=== PATIENT | male | born 1960 | race Caucasian/White ===

== ENCOUNTER 2018-04-17 15:44 | Emergency (ER) | payer MEDICARE, OTHER ==
[~2018-04-17] VITALS: Ht 193 cm; Wt 117.9 kg
[~2018-04-17 15:44] MED LIST: CITA10TA59; GABA300C OR; HYDR-4683 PO; METO25TA62 PO
[2018-04-17 16:27] VITALS: BP 166/78
[2018-04-17] MEDS ORDERED: ALPRAZolam 0.5 MG TAB PO ONE (16:30)
== END 2018-04-17 17:06 | disposition home or self-care (01) ==
LOC: ER 15:44 → EDBD 15:44 → ER 17:06
DX: F41.9 Anxiety disorder, unspecified (principal); E78.5 Hyperlipidemia, unspecified; I10 Essential (primary) hypertension; I25.10 Atherosclerotic heart disease of native coronary artery without angina pectoris; F17.210 Nicotine dependence, cigarettes, uncomplicated; R51 Headache
CPT/HCPCS: 93005

== ENCOUNTER 2019-01-26 13:09 | Emergency (ER) | payer OTHER ==
[~2019-01-26] VITALS: Ht 193 cm; Wt 122.5 kg
[~2019-01-26 13:09] MED LIST changes: -HYDR-4683 PO; +HYDR-4833 PO
[2019-01-26] MEDS ORDERED: SODIUM CHLORIDE 0.9% 1,000 ML IVB ONE (13:29)
[2019-01-26] MEDS ORDERED: KETOROLAC TROMETH 15 mg/ml 1ML VL IV ONE (13:30)
[2019-01-26 14:05] LABS: Basophils # (auto) 0.1 uL; Basophils % (auto) 0.7 % (0.0-2.0); Eosinophils # (auto) 0.1 uL; Eosinophils % (auto) 0.6 % (0.0-7.0); Hematocrit 46.8 % (41.0-53.0); Hemoglobin 16.3 g/dL (13.5-17.5); Lymphocytes # (auto) 1.9 uL; Lymphocytes % (auto) 20.2 % (10.0-50.0); Mean Corpuscular Hemoglobin 30.9 pg (28.0-32.0); Mean Corpuscular Hgb Conc. 34.8 g/dL (32.0-36.0); Mean Corpuscular Volume 88.7 fL (80.0-100.0); Monocytes # (auto) 0.6 uL; Monocytes % (auto) 6.1 % (0.0-12.0); Neutrophils # (auto) 6.7 uL; Neutrophils % (auto) 72.4 % (37.0-80.0); Nucleated Red Blood Cells % 0.1 %; Platelet Count (auto) 234 10^3/uL (140-450); Red Blood Cells 5.27 10^6/uL (4.5-5.90); Red Cell Distribution Width 13.7 % (11.8-14.3); White Blood Cell 9.2 10^3/uL (4.4-10.8)
[2019-01-26 14:51] LABS: Albumin 3.8 g/dL (3.4-5.0); Calcium 9.1 mg/dL (8.5-10.1); Potassium 3.7 mmol/L (3.5-5.1)
[2019-01-26 14:56] LABS: BUN/Creatinine Ratio 10.7; Bilirubin, Total 0.5 mg/dL (0.2-1.0); Total Protein 7.3 g/dL (6.4-8.2)
[2019-01-26] MEDS ORDERED: LORazepam 2MG/ML-1ML VIAL IV ONE (15:15)
[2019-01-26 16:23] LABS: Urine Blood 1+ /uL (Negative); Urine Mucus MODERATE (None Seen); Urine Specific Gravity 1.034 (1.001-1.035); Urine WBC 24 /hpf (0 - 3)
[2019-01-26 16:25] LABS: Urine Bacteria RARE /hpf (None Seen)
[2019-01-26 16:30] VITALS: BP 137/83
== END 2019-01-26 17:25 | disposition home or self-care (01) ==
LOC: EDBD 13:09 → ER 13:18
DX: N39.0 Urinary tract infection, site not specified (principal); I25.10 Atherosclerotic heart disease of native coronary artery without angina pectoris; E78.5 Hyperlipidemia, unspecified; I10 Essential (primary) hypertension; F17.210 Nicotine dependence, cigarettes, uncomplicated; Z79.899 Other long term (current) drug therapy
CPT/HCPCS: 36415; 74176; 80053; 81001; 83690; 85025; 93005; 94761; 96374; 96375; 99284; J1885; J2060; J7030

== ENCOUNTER 2020-03-28 09:43 | Inpatient (IN) | payer OTHER, MEDICAID ==
[~2020-03-28] VITALS: Ht 193 cm; Wt 120.0 kg
[~2020-03-28 09:43] MED LIST changes: -METO25TA62 PO; +METO25TA93 PO
[2020-03-28] MEDS ORDERED: ASPirin 81 mg TAB PO ONE (10:15)
[2020-03-28] MEDS ORDERED: ONDANSETRON HCL 4 MG/2 ML VIAL IV ONE (10:15)
[2020-03-28] MEDS ORDERED: NITROGLYCERIN 0.4 MG SL TAB SL ONE (10:15)
[2020-03-28] MEDS: MORPHINE SULFATE 4 MG/ML SYR/VIAL IV ONE ×2 (10:27→11:34)
[2020-03-28] MEDS ORDERED: clonazePAM 0.5 MG TAB PO ONE (10:30)
[2020-03-28 10:40] LABS: Basophils # (auto) 0 10 ^3/uL (0-0.2); Basophils % (auto) 0.5 % (0.0-2.0); Eosinophils # (auto) 0.1 10 ^3/uL (0-0.8); Eosinophils % (auto) 0.8 % (0.0-7.0); Hematocrit 47.7 % (41.0-53.0); Hemoglobin 16.2 g/dL (13.5-17.5); Lymphocytes # (auto) 1.3 10 ^3/uL (0.4-5.4); Mean Corpuscular Hemoglobin 30.5 pg (28.0-32.0); Mean Corpuscular Volume 89.7 fL (80.0-100.0); Monocytes # (auto) 0.7 10 ^3/uL (0-1.3); Monocytes % (auto) 7.1 % (0.0-12.0); Neutrophils # (auto) 7.4 10 ^3/uL (1.6-8.6); Neutrophils % (auto) 77.6 % (37.0-80.0); Platelet Count (auto) 222 10^3/uL (140-450); Red Blood Cells 5.31 10^6/uL (4.5-5.90); Red Cell Distribution Width 13.9 % (11.8-14.3); White Blood Cell 9.6 10^3/uL (4.4-10.8)
[2020-03-28 11:00] LABS: Calcium 8.8 mg/dL (8.5-10.1); Chloride 106 mmol/L (98-107); Potassium 5.5 mmol/L (3.5-5.1); Sodium 135 mmol/L (136-145)
[2020-03-28 11:08] LABS: Alanine Aminotransferase 26 U/L (16-61); Albumin 3.8 g/dL (3.4-5.0); Alkaline Phosphatase 60 U/L (45-117); Anion Gap 2 (5-15); Aspartate Aminotransferase 42 U/L (15-37); BUN/Creatinine Ratio 13.4; Bilirubin, Total 0.7 mg/dL (0.2-1.0); Blood Urea Nitrogen 11 mg/dL (7-18); Carbon Dioxide 27 mmol/L (21-32); GFR African American 123 mL/min; GFR Non-African American 102 mL/min; Glucose 96 mg/dL (74-106); Magnesium 2.4 mg/dL (1.6-2.6); Total Protein 7.6 g/dL (6.4-8.2)
[2020-03-28] MEDS ORDERED: ALBUTEROL SULF 2.5 MG/0.5ML(0.5%) NEB SOLN NEB ONE (12:00)
[2020-03-28] MEDS ORDERED: InsuLIN REG 1unit/0.01ml Soln (100units/ml) IV ONE (12:00)
[2020-03-28] MEDS ORDERED: SODIUM BICARBONATE 8.4% INJ 50ML SYRINGE IV ONE (12:00)
[2020-03-28] MEDS ORDERED: SODIUM ZIRCONIUM CYCL 10 GM PAK PO ONE (12:00)
[2020-03-28] MEDS ORDERED: DEXTROSE (50%) 50ML SYRG IV ONE (12:00)
[2020-03-28] MEDS ORDERED: CALCIUM GLUC 4.65meq/50ml D5AE 50 ML IV ONE (12:00)
[2020-03-28] MEDS ORDERED: MORPHINE SULF INJ 2 MG/ML SYRINGE 1ML IV PRN ×2 (12:45→14:00)
[2020-03-28] MEDS ORDERED: NITROGLYCERIN 0.4 MG SL TAB SL PRN (12:45)
[2020-03-28] MEDS ORDERED: CLON1TAB10 PO (13:44)
[2020-03-28] MEDS ORDERED: ONDA-144 PO (13:44)
[2020-03-28] MEDS ORDERED: ERGO1CAP12 PO (13:44)
[2020-03-28] MEDS ORDERED: METH10T PO (13:44)
[2020-03-28] MEDS ORDERED: MET25T PO (13:44)
[2020-03-28] MEDS ORDERED: SILV-21 EX (13:45)
[2020-03-28] MEDS: SODIUM CHLOR 0.9% PF (SALINE LOCK) 10ML VIAL/SYR IV SCH ×2 (14:00→21:19)
[2020-03-28] MEDS ORDERED: PROMETHAZINE HCL 25 MG/ML 1ML IV PRN (14:00)
[2020-03-28] MEDS ORDERED: traMADol HCL 50 MG TAB PO PRN (14:00)
[2020-03-28] MEDS ORDERED: TEMAZEPAM 15 MG CAP PO PRN (14:00)
[2020-03-28] MEDS ORDERED: DOCU-94 PO (21:01)
[2020-03-28] MEDS: FAMOTIDINE 20 MG TAB PO SCH (21:17)
[2020-03-28] MEDS: ACETAMINOPHEN 500 MG TAB PO PRN (21:17)
[2020-03-28 23:34] VITALS: BP 138/79
[2020-03-29] VITALS (7 sets, daily range): BP systolic 119–142; BP diastolic 75–79
[2020-03-29] MEDS: SODIUM CHLOR 0.9% PF (SALINE LOCK) 10ML VIAL/SYR IV SCH ×3 (06:00→22:23)
--- NOTE | 2020-03-29 07:30 | NUR ---
Opening Shift Note Assumed care of patient, awake and alert. No S/S of distress/SOB or pain. Instructed on POC and to call for assist PRN, will continue to monitor for changes Q1hr and PRN. Fall precautions in place per safety protocol.
[2020-03-29 08:08] LABS: Chloride 105 mmol/L (98-107); Potassium 3.7 mmol/L (3.5-5.1); Sodium 139 mmol/L (136-145)
[2020-03-29 08:20] LABS: Alanine Aminotransferase 21 U/L (16-61); Albumin 3.6 g/dL (3.4-5.0); Alkaline Phosphatase 59 U/L (45-117); Anion Gap 6 (5-15); Aspartate Aminotransferase 13 U/L (15-37); Bilirubin, Total 0.7 mg/dL (0.2-1.0); Blood Urea Nitrogen 12 mg/dL (7-18); Calcium 8.6 mg/dL (8.5-10.1); Carbon Dioxide 28 mmol/L (21-32); Cholesterol 140 mg/dL (< 200); GFR African American 117 mL/min; GFR Non-African American 96 mL/min; Glucose 80 mg/dL (74-106); HDL Cholesterol 40 mg/dL (40-59); LDL Cholesterol 88 mg/dL (< 100); Triglycerides 136 mg/dL (< 150)
[2020-03-29] MEDS ORDERED: clonazePAM 0.5 MG TAB PO ONE (09:00)
--- NOTE | 2020-03-29 09:00 | NUR ---
Spoke to MD Gross regarding patient requesting daily clonazepam 1mg. Per MD Gross, order 1mg Clonazepam PO daily. Per MD Gross, ok to change this daily med and methadone for 0800 everyday. Orders read back and verified. Will cont to monitor patient.
[2020-03-29] MEDS ORDERED: METHADONE HCL 10 MG TAB PO ONE (09:15)
[2020-03-29] MEDS: ASPirin 81 mg TAB PO SCH (09:22)
[2020-03-29] MEDS: FAMOTIDINE 20 MG TAB PO SCH ×2 (09:22→22:23)
[2020-03-29] MEDS: ENOXAPARIN SOD 40 MG/0.4 ML SYRINGE SC SCH (09:23)
[2020-03-29] MEDS: ENALAPRIL MALEATE 2.5 MG TAB PO SCH (09:23)
[2020-03-29 09:24] LABS: Alcohol, Urine < 3.0 mg/dL (0-10); Amphetamine Screen, Urine NEGATIVE (NEGATIVE); Barbiturate Scree,Urine NEGATIVE (NEGATIVE); Benzodiazephine Screen, Urine NEGATIVE (NEGATIVE); Cannabinoid Screen, Urine NEGATIVE (NEGATIVE); Cocaine Screen, Urine NEGATIVE (NEGATIVE); Opiate Scree,Urine NEGATIVE (NEGATIVE); Phencyclidine Screen, Urine NEGATIVE (NEGATIVE)
[2020-03-29] MEDS: NITROGLYCERIN 0.2MG/HR TOPICAL PATCH TD SCH (09:24)
[2020-03-29] MEDS ORDERED: METHADONE HCL 10 MG TAB PO SCH (10:00)
[2020-03-29] MEDS ORDERED: ASPirin 81 mg TAB PO SCH (10:00)
[2020-03-29] MEDS: ACETAMINOPHEN 500 MG TAB PO PRN ×2 (16:51→22:44)
--- NOTE | 2020-03-29 17:18 | NUR ---
Hospitalist MD Gross at bedside, aware of patient status. New orders input by MD. Per MD change CPAP to BiPAP and have it titrated for patient comfort. Orders read back and verified. Will cont to monitor patient.
[2020-03-29 18:17] LABS: Urine Bacteria NONE SEEN /hpf (None Seen); Urine Blood Negative /uL (Negative); Urine Mucus FEW (None Seen); Urine Specific Gravity 1.022 (1.001-1.035); Urine WBC <1 /hpf (0 - 3)
[2020-03-30 05:00] VITALS: BP 127/80
--- NOTE | 2020-03-30 05:49 | NUR ---
PT TAKEN OFF BIPAP AT THIS TIME AND PLACED ON 2LNC. SPO2 97%, HR 63, RR 18. NO S/S OF RESPIRATORY DISTRESS.
[2020-03-30] MEDS: SODIUM CHLOR 0.9% PF (SALINE LOCK) 10ML VIAL/SYR IV SCH ×3 (06:00→21:27)
[2020-03-30] MEDS ORDERED: clonazePAM 0.5 MG TAB PO SCH ×2 (08:00→22:00)
[2020-03-30 08:10] LABS: Basophils # (auto) 0 10 ^3/uL (0-0.2); Basophils % (auto) 0.5 % (0.0-2.0); Eosinophils # (auto) 0.3 10 ^3/uL (0-0.8); Eosinophils % (auto) 3.2 % (0.0-7.0); Hematocrit 46.6 % (41.0-53.0); Hemoglobin 15.4 g/dL (13.5-17.5); Lymphocytes # (auto) 1.9 10 ^3/uL (0.4-5.4); Lymphocytes % (auto) 23.6 % (10.0-50.0); Mean Corpuscular Volume 90.9 fL (80.0-100.0); Monocytes # (auto) 0.6 10 ^3/uL (0-1.3); Monocytes % (auto) 8.1 % (0.0-12.0); Neutrophils # (auto) 5.1 10 ^3/uL (1.6-8.6); Neutrophils % (auto) 64.6 % (37.0-80.0); Platelet Count (auto) 182 10^3/uL (140-450); Red Blood Cells 5.13 10^6/uL (4.5-5.90); Red Cell Distribution Width 14.2 % (11.8-14.3); White Blood Cell 7.9 10^3/uL (4.4-10.8)
[2020-03-30] MEDS: METHADONE HCL 10 MG TAB PO SCH (08:22)
[2020-03-30] MEDS: clonazePAM 0.5 MG TAB PO SCH ×2 (08:22→19:56)
[2020-03-30 08:25] LABS: Anion Gap 4 (5-15); Blood Urea Nitrogen 15 mg/dL (7-18); Carbon Dioxide 30 mmol/L (21-32); Chloride 104 mmol/L (98-107); Glucose 82 mg/dL (74-106); Potassium 4.1 mmol/L (3.5-5.1); Sodium 138 mmol/L (136-145)
[2020-03-30 08:33] LABS: BUN/Creatinine Ratio 18.5; GFR African American 125 mL/min; GFR Non-African American 103 mL/min
[2020-03-30 09:00] VITALS: BP 127/72
[2020-03-30] MEDS: ASPirin 81 mg TAB PO SCH (09:26)
[2020-03-30] MEDS: ENOXAPARIN SOD 40 MG/0.4 ML SYRINGE SC SCH (09:27)
[2020-03-30] MEDS: FAMOTIDINE 20 MG TAB PO SCH ×2 (09:27→21:27)
[2020-03-30] MEDS: ENALAPRIL MALEATE 2.5 MG TAB PO SCH (09:27)
[2020-03-30] MEDS: NITROGLYCERIN 0.2MG/HR TOPICAL PATCH TD SCH (09:28)
[2020-03-30 12:44] VITALS: BP 117/70
[2020-03-30 17:00] VITALS: BP 117/69
--- NOTE | 2020-03-30 19:45 | NUR ---
Opening Shift Note Assumed care of patient, awake and alert. No S/S of distress/SOB. Patient c/o pain 3/10 to headache. Instructed on POC and to call for assist PRN, will continue to monitor for changes Q1hr and PRN.
[2020-03-30 20:00] VITALS: BP 117/76
[2020-03-30] MEDS: ACETAMINOPHEN 500 MG TAB PO PRN (20:24)
[2020-03-30] MEDS: DOCUSATE SOD 100 MG CAP PO PRN (21:27)
[2020-03-30 22:00] VITALS: BP 117/76
[2020-03-31 05:00] VITALS: BP 124/78
[2020-03-31 05:20] LABS: Basophils # (auto) 0 10 ^3/uL (0-0.2); Basophils % (auto) 0.6 % (0.0-2.0); Eosinophils # (auto) 0.3 10 ^3/uL (0-0.8); Eosinophils % (auto) 4.4 % (0.0-7.0); Hematocrit 47.7 % (41.0-53.0); Hemoglobin 15.6 g/dL (13.5-17.5); Lymphocytes # (auto) 2.3 10 ^3/uL (0.4-5.4); Lymphocytes % (auto) 31.1 % (10.0-50.0); Mean Corpuscular Hemoglobin 29.5 pg (28.0-32.0); Mean Corpuscular Hgb Conc. 32.7 g/dL (32.0-36.0); Mean Corpuscular Volume 90.5 fL (80.0-100.0); Monocytes # (auto) 0.6 10 ^3/uL (0-1.3); Neutrophils # (auto) 4.2 10 ^3/uL (1.6-8.6); Neutrophils % (auto) 55.9 % (37.0-80.0); Nucleated Red Blood Cells % 0.1 %; Platelet Count (auto) 175 10^3/uL (140-450); Red Blood Cells 5.28 10^6/uL (4.5-5.90); Red Cell Distribution Width 14.1 % (11.8-14.3); White Blood Cell 7.4 10^3/uL (4.4-10.8)
[2020-03-31] MEDS: SODIUM CHLOR 0.9% PF (SALINE LOCK) 10ML VIAL/SYR IV SCH ×3 (05:37→21:35)
[2020-03-31 05:40] LABS: Potassium 4.2 mmol/L (3.5-5.1)
[2020-03-31 05:44] LABS: BUN/Creatinine Ratio 19.2
--- NOTE | 2020-03-31 07:50 | NUR ---
Opening Shift Note Assumed care of patient, awake and alert sitting up in bed. No S/S of distress/SOB or pain. Instructed on POC and to call for assist PRN, will continue to monitor for changes Q1hr and PRN.
--- NOTE | 2020-03-31 08:05 | NUR ---
IV removal IV to left AC infiltrated and painful. Same removed with clean sterile technique, catheter fully intact. Pressure dressing applied to site. Patient tolerated well. IV insertion IV access obtained, via clean sterile technique by inserting 20 gauge catheter at left forearm after 1 attempt(s). IV secured properly. No trauma to site. Patient tolerated well.
[2020-03-31] MEDS: clonazePAM 0.5 MG TAB PO SCH ×2 (08:12→20:47)
[2020-03-31] MEDS: METHADONE HCL 10 MG TAB PO SCH (08:13)
[2020-03-31 09:00] VITALS: BP 123/71
--- NOTE | 2020-03-31 10:45 | NUR ---
Stress Test Received confirmation from Radiology that stress test will be tomorrow 03/31/20. Patient is able to eat and have his medications.
[2020-03-31] MEDS: ASPirin 81 mg TAB PO SCH (10:52)
[2020-03-31] MEDS: ENOXAPARIN SOD 40 MG/0.4 ML SYRINGE SC SCH (10:52)
[2020-03-31] MEDS: FAMOTIDINE 20 MG TAB PO SCH ×2 (10:52→21:35)
[2020-03-31] MEDS: ENALAPRIL MALEATE 2.5 MG TAB PO SCH (10:54)
[2020-03-31] MEDS: NITROGLYCERIN 0.2MG/HR TOPICAL PATCH TD SCH (10:54)
[2020-03-31] MEDS: ACETAMINOPHEN 500 MG TAB PO PRN ×2 (10:59→18:27)
[2020-03-31 13:00] VITALS: BP 147/79
--- NOTE | 2020-03-31 14:50 | NUR ---
Nutrition Assessment Note please see attached link for complete assessment Est Energy needs ABW 104 [id number] kcals (23-25 kcal/kgABW), Est Protein needs: 104-114 gms/day (1.0-1.1 gm/kgABW). Will continue to monitor and reassess prn. Addendum: 03/31/20 at [address] Amended: Links added.
[2020-03-31 17:00] VITALS: BP 116/66
[2020-03-31] MEDS: DOCUSATE SOD 100 MG CAP PO PRN (18:27)
--- NOTE | 2020-03-31 21:00 | NUR ---
Opening Shift Note Assumed care of patient, awake and alert. No S/S of distress/SOB or pain. Instructed on POC and to call for assist PRN, will continue to monitor for changes Q1hr and PRN. Patient in the lowest possible position with call light within reach. Patient on BiPAP machine, will call for RT when patient is ready for bed. Addendum: 03/31/20 at 2101 by Nereida Mendez RN seen at 1900
[2020-03-31 22:00] VITALS: BP 124/71
[2020-04-01 02:45] VITALS: BP 124/71
--- NOTE | 2020-04-01 03:39 | NUR ---
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 Patient states that he has little to no time for himself and his anxiety level has increased trying to take care of others. Educated patient about importance of self care and activities that can help reduce his anxiety level. Patient understood. Addendum: 04/01/20 at 0343 by Nereida Mendez RN Amended: Links added.
[2020-04-01 05:00] VITALS: BP 133/77
[2020-04-01] MEDS: SODIUM CHLOR 0.9% PF (SALINE LOCK) 10ML VIAL/SYR IV SCH ×2 (06:26→13:28)
--- NOTE | 2020-04-01 06:45 | NUR ---
Respiratory note: PATIENT REMOVED FROM CPAP AT THIS TIME AND PLACED ON 2LPM NASAL CANNULA. SPO2 MAINTAINED AT 97%. REDNESS WAS NOTED ON BRIDGE OF NOSE, BUT IT WAS BLANCHABLE, WILL INFORM NOC SHIFT TO PLACE PROTECTIVE DRESSING ON PATIENT PRIOR TO PLACEMENT OF CPAP MASK.
[2020-04-01 07:10] LABS: Basophils # (auto) 0 10 ^3/uL (0-0.2); Basophils % (auto) 0.5 % (0.0-2.0); Eosinophils # (auto) 0.3 10 ^3/uL (0-0.8); Eosinophils % (auto) 3.7 % (0.0-7.0); Hematocrit 46.2 % (41.0-53.0); Hemoglobin 15.5 g/dL (13.5-17.5); Lymphocytes # (auto) 1.6 10 ^3/uL (0.4-5.4); Lymphocytes % (auto) 20.9 % (10.0-50.0); Mean Corpuscular Hemoglobin 30.3 pg (28.0-32.0); Mean Corpuscular Hgb Conc. 33.6 g/dL (32.0-36.0); Monocytes # (auto) 0.7 10 ^3/uL (0-1.3); Monocytes % (auto) 9.1 % (0.0-12.0); Neutrophils # (auto) 4.9 10 ^3/uL (1.6-8.6); Neutrophils % (auto) 65.8 % (37.0-80.0); Nucleated Red Blood Cells % 0.1 %; Platelet Count (auto) 185 10^3/uL (140-450); Red Blood Cells 5.13 10^6/uL (4.5-5.90); White Blood Cell 7.5 10^3/uL (4.4-10.8)
[2020-04-01 07:39] LABS: Anion Gap 2 (5-15); Blood Urea Nitrogen 16 mg/dL (7-18); Calcium 8.9 mg/dL (8.5-10.1); Carbon Dioxide 32 mmol/L (21-32); Chloride 103 mmol/L (98-107); Glucose 88 mg/dL (74-106); Potassium 4.2 mmol/L (3.5-5.1); Sodium 137 mmol/L (136-145)
[2020-04-01 07:41] LABS: BUN/Creatinine Ratio 17.8; GFR African American 111 mL/min; GFR Non-African American 91 mL/min
[2020-04-01] MEDS: clonazePAM 0.5 MG TAB PO SCH ×2 (07:54→19:45)
[2020-04-01] MEDS: METHADONE HCL 10 MG TAB PO SCH (07:55)
--- NOTE | 2020-04-01 08:00 | NUR ---
Off Unit Patient left unit in wheelchair for stress test.
[2020-04-01] MEDS ORDERED: ADENOSINE 101 MG in GIVE UN-DILUTED 0 ML IV STA (08:21)
[2020-04-01 08:52] VITALS: BP 125/71
--- NOTE | 2020-04-01 09:40 | NUR ---
On Unit Patient returned to unit after having stress test done. No obvious distress will continue to monitor.
[2020-04-01] MEDS: ENALAPRIL MALEATE 2.5 MG TAB PO SCH (09:51)
[2020-04-01] MEDS: FAMOTIDINE 20 MG TAB PO SCH (09:52)
[2020-04-01] MEDS: ASPirin 81 mg TAB PO SCH (09:52)
[2020-04-01] MEDS: ENOXAPARIN SOD 40 MG/0.4 ML SYRINGE SC SCH (09:55)
[2020-04-01] MEDS: NITROGLYCERIN 0.2MG/HR TOPICAL PATCH TD SCH (09:55)
[2020-04-01 12:46] VITALS: BP 123/82
[2020-04-01 13:00] VITALS: BP 148/76
[2020-04-01] MEDS: DOCUSATE SOD 100 MG CAP PO PRN (14:50)
[2020-04-01 16:33] VITALS: BP 112/70
--- NOTE | 2020-04-01 19:00 | NUR ---
Opening Shift Note Assumed care of patient, awake and alert. No S/S of distress/SOB or pain. Instructed on POC and to call for assist PRN, will continue to monitor for changes Q1hr and PRN. Patient to be discharged this evening.
--- NOTE | 2020-04-01 19:30 | NUR ---
Klonopin given to patient early so that patients anxiety level would go down. Patient is anxious about going home. Patient has history of COOPER, educated patient on relaxation techniques and when to come back if problem persists. Patient verbalized understanding.
--- NOTE | 2020-04-01 21:00 | NUR ---
IV removal IV DC'd with clean sterile technique, catheter fully intact. Pressure dressing applied to site. Patient tolerated well. NoTE: removed from left wrist, no complications noted.
--- NOTE | 2020-04-01 21:01 | NUR ---
Tele box #[id number] discontinued and sent back to tele monitor.
--- NOTE | 2020-04-01 21:05 | NUR ---
Patient left, no complications noted. Patient left walking out with grandson picking him up to go home.
== END 2020-04-01 21:15 | disposition home or self-care (01) | DRG 313 ==
LOC: ER 09:43 → EDBD 09:43 → TELE 09:44 → TELE-WESTW 20:22
PROVIDERS: ADMIT Internal Medicine; ATTEND Internal Medicine
DX: R07.89 Other chest pain (principal); I24.9 Acute ischemic heart disease, unspecified; E87.1 Hypo-osmolality and hyponatremia; E87.5 Hyperkalemia; I25.10 Atherosclerotic heart disease of native coronary artery without angina pectoris; E66.9 Obesity, unspecified; F41.9 Anxiety disorder, unspecified; I10 Essential (primary) hypertension; I25.2 Old myocardial infarction; G89.4 Chronic pain syndrome; G47.30 Sleep apnea, unspecified; E78.5 Hyperlipidemia, unspecified; Z79.891 Long term (current) use of opiate analgesic; F17.210 Nicotine dependence, cigarettes, uncomplicated; Z68.32 Body mass index [BMI] 32.0-32.9, adult
CPT/HCPCS: 36415; 70450; 71045; 78452; 80048; 80053; 80061; 80307; 81001; 82550; 82962; 83036; 83735; 83880; 84132; 84443; 84484; 85025; 85379; 85652; 86141; 87086; 93005; 93017; 93306; 94640; 94660; 99291; G0378; J0153; J0610; J1815; J2405

== ENCOUNTER 2020-06-01 09:54 | Inpatient (IN) | payer OTHER, MEDICAID ==
[~2020-06-01] VITALS: Ht 193 cm; Wt 118.6 kg
[~2020-06-01 09:54] MED LIST changes: -CITA10TA59; +CLON1TAB10 PO; +DOCU-94 PO; +ERGO1CAP12 PO; -GABA300C OR; -HYDR-4833 PO; +MET25T PO; +METH10T PO; -METO25TA93 PO; +ONDA-144 PO; +SILV-21 EX
[2020-06-01 10:47] LABS: Basophils # (auto) 0 10 ^3/uL (0-0.2); Basophils % (auto) 0.2 % (0.0-2.0); Eosinophils # (auto) 0.1 10 ^3/uL (0-0.8); Hematocrit 46.3 % (41.0-53.0); Hemoglobin 15.8 g/dL (13.5-17.5); Lymphocytes # (auto) 1.6 10 ^3/uL (0.4-5.4); Lymphocytes % (auto) 17.5 % (10.0-50.0); Mean Corpuscular Hemoglobin 30.7 pg (28.0-32.0); Mean Corpuscular Volume 90.4 fL (80.0-100.0); Monocytes # (auto) 0.7 10 ^3/uL (0-1.3); Monocytes % (auto) 7.6 % (0.0-12.0); Neutrophils # (auto) 6.9 10 ^3/uL (1.6-8.6); Neutrophils % (auto) 73.7 % (37.0-80.0); Nucleated Red Blood Cells % 0.6 %; Platelet Count (auto) 228 10^3/uL (140-450); Red Blood Cells 5.13 10^6/uL (4.5-5.90); Red Cell Distribution Width 13.5 % (11.8-14.3); White Blood Cell 9.3 10^3/uL (4.4-10.8)
[2020-06-01 10:58] LABS: Albumin 3.7 g/dL (3.4-5.0); Anion Gap 8 (5-15); Blood Urea Nitrogen 10 mg/dL (7-18); Carbon Dioxide 24 mmol/L (21-32); Chloride 105 mmol/L (98-107); Glucose 95 mg/dL (74-106); Magnesium 2.4 mg/dL (1.6-2.6); Potassium 4.3 mmol/L (3.5-5.1); Sodium 137 mmol/L (136-145)
[2020-06-01 11:04] LABS: Alanine Aminotransferase 21 U/L (16-61); Alkaline Phosphatase 61 U/L (45-117); Aspartate Aminotransferase 14 U/L (15-37); BUN/Creatinine Ratio 12.2; Bilirubin, Total 0.4 mg/dL (0.2-1.0); GFR African American 123 mL/min; GFR Non-African American 102 mL/min; Total Protein 7.2 g/dL (6.4-8.2)
[2020-06-01 11:23] LABS: Urine Bacteria NONE SEEN /hpf (None Seen); Urine Blood Negative /uL (Negative); Urine Mucus FEW (None Seen); Urine Specific Gravity 1.018 (1.001-1.035); Urine WBC <1 /hpf (0 - 3)
[2020-06-01] MEDS ORDERED: clonazePAM 0.5 MG TAB PO ONE (12:15)
[2020-06-01] MEDS ORDERED: MORPHINE SULF INJ 2 MG/ML SYRINGE 1ML IV PRN ×2 (13:15→13:30)
[2020-06-01] MEDS ORDERED: NITROGLYCERIN 0.4 MG SL TAB SL PRN (13:15)
[2020-06-01] MEDS ORDERED: traMADol HCL 50 MG TAB PO PRN (13:30)
[2020-06-01] MEDS ORDERED: PROMETHAZINE HCL 25 MG/ML 1ML IV PRN (13:30)
[2020-06-01] MEDS ORDERED: ACETAMINOPHEN 500 MG TAB PO PRN (13:30)
[2020-06-01] MEDS ORDERED: clonazePAM 0.5 MG TAB PO PRN (13:45)
[2020-06-01 13:56] LABS: Alcohol, Urine < 3.0 mg/dL (0-10); Amphetamine Screen, Urine NEGATIVE (NEGATIVE); Barbiturate Scree,Urine NEGATIVE (NEGATIVE); Benzodiazephine Screen, Urine NEGATIVE (NEGATIVE); Cannabinoid Screen, Urine NEGATIVE (NEGATIVE); Cocaine Screen, Urine NEGATIVE (NEGATIVE); Opiate Scree,Urine NEGATIVE (NEGATIVE); Phencyclidine Screen, Urine NEGATIVE (NEGATIVE)
[2020-06-01] MEDS: SODIUM CHLORIDE 0.9% 1,000 ML IV SCH (13:58)
--- NOTE | 2020-06-01 16:45 | NUR ---
Opening Shift Note Assumed care of patient, awake and alert. No S/S of distress/SOB or pain on room air. Instructed on POC and to call for assist PRN, will continue to monitor for changes Q1hr and PRN. Bed in low and locked position, rails up x2, no-slip socks on.
[2020-06-01] MEDS ORDERED: CLON0.5T3 PO (16:55)
[2020-06-01 17:00] VITALS: BP 142/89
--- NOTE | 2020-06-01 17:00 | NUR ---
PAGE TO DR PATEL PATIENT STATED HE HAS BEEN HAVING CONSTIPATION, USES A CPAP AT NIGHT FOR SLEEP APNEA AND TAKES KLONOPIN 1MG BID AT 0700 AND 1900, AWAITING CALL BACK.
[2020-06-01 17:10] VITALS: BP 142/89
--- NOTE | 2020-06-01 17:30 | NUR ---
ZAYRA MINOR AT BEDSIDE UROLOGY CONSULT COMPLETE, ORELLANA CATHETER PLACED BY ZAYRA. Addendum: 06/01/20 at 1805 by EBONIE PEREZ RN RN CHARTED ON WRONG PATIENT
[2020-06-01] MEDS: clonazePAM 0.5 MG TAB PO SCH (18:52)
[2020-06-01 19:12] VITALS: BP 142/89
--- NOTE | 2020-06-01 19:13 | NUR ---
SHIFT CHANGE ENDORSED CARE TO CATHLEEN NEIL
--- NOTE | 2020-06-01 19:45 | NUR ---
Opening Shift Note Assumed care of patient, awake and alert. No S/S of distress/SOB or pain. Updated on POC and to call for assist PRN, patient verbalized understanding. Bed in safety position, call light within reach, will continue to monitor for changes Q1hr and PRN.
[2020-06-01 20:00] VITALS: BP 139/64
[2020-06-01] MEDS: FAMOTIDINE 20 MG TAB PO SCH (21:25)
[2020-06-01] MEDS: DOCUSATE SOD 100 MG CAP PO SCH (21:26)
[2020-06-01] MEDS: LACTULOSE 20Gm/30ML SOLN PO SCH (21:27)
[2020-06-01] MEDS: ATORVASTATIN 20 MG TAB PO SCH (21:27)
[2020-06-01 22:00] VITALS: BP 139/64
[2020-06-01] MEDS: METOPROLOL TARTRATE 25 MG TAB PO SCH (22:00)
[2020-06-02 05:00] VITALS: BP 130/79
[2020-06-02] MEDS: SODIUM CHLORIDE 0.9% 1,000 ML IV SCH ×3 (05:08→17:28)
[2020-06-02] MEDS: clonazePAM 0.5 MG TAB PO SCH ×2 (06:24→19:57)
[2020-06-02 06:32] LABS: Cholesterol 141 mg/dL (< 200); HDL Cholesterol 45 mg/dL (40-59); LDL Cholesterol 92 mg/dL (< 100); Triglycerides 142 mg/dL (< 150)
[2020-06-02 06:39] VITALS: BP 130/79
[2020-06-02] MEDS: METHADONE HCL 10 MG TAB PO SCH (08:10)
[2020-06-02] MEDS: ASPirin 81 mg TAB PO SCH (09:18)
[2020-06-02] MEDS: FAMOTIDINE 20 MG TAB PO SCH (09:19)
[2020-06-02 09:20] VITALS: BP 149/77
[2020-06-02] MEDS: LACTULOSE 20Gm/30ML SOLN PO SCH ×2 (09:20→22:52)
[2020-06-02] MEDS: METOPROLOL TARTRATE 25 MG TAB PO SCH ×2 (09:20→22:00)
[2020-06-02] MEDS: DOCUSATE SOD 100 MG CAP PO SCH ×2 (09:20→22:53)
[2020-06-02] MEDS: NITROGLYCERIN 0.2MG/HR TOPICAL PATCH TD SCH (09:24)
[2020-06-02] MEDS: ENOXAPARIN SOD 40 MG/0.4 ML SYRINGE SC SCH (09:24)
[2020-06-02] MEDS ORDERED: clonazePAM 0.5 MG TAB PO SCH (10:00)
[2020-06-02 12:39] VITALS: BP 140/88
--- NOTE | 2020-06-02 16:22 | NUR ---
Pt is an alert and oriented male that resides with his disabled significant other. 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 Pt states he uses a cane but otherwise functions independently. Pt states he has not applied to be his SO's [employer] worker because of the potential financial effect on his SS disability. Will provide pt with information for [employer] for additional caregiver options and advance directives. Pt states his family will provide transportation home upon discharge. Addendum: 06/02/20 at 1628 by ANTWON RODRIGUEZ Amended: Links added.
[2020-06-02] MEDS: PANTOPRAZOLE 40 MG TAB PO SCH ×2 (16:30→22:54)
[2020-06-02 16:44] VITALS: BP 131/77
[2020-06-02] MEDS: SUCRALFATE 1 GM/10 ML ORAL SUSP PO SCH ×2 (17:29→22:52)
--- NOTE | 2020-06-02 18:17 | NUR ---
NO COMPLAINTS HAS BEEN RESTING IN BED. EATING ET DRINKING WELL. VOIDING WITHOUT DIFFICULTY. DENIES ANY OTHER NEEDS
[2020-06-02] MEDS: MILK OF MAGNESIA 30ML SUSP PO PRN (19:56)
--- NOTE | 2020-06-02 20:35 | NUR ---
Advised patient to have a tap enema as ordered. Patient stated he has 3 small bowel movements during the day. Per patient, he wanted to manage his constipation with medicine at this time
[2020-06-02 22:00] VITALS: BP 116/72
[2020-06-02] MEDS: ATORVASTATIN 20 MG TAB PO SCH (22:53)
[2020-06-03 05:00] VITALS: BP 123/81
--- NOTE | 2020-06-03 05:58 | NUR ---
RT NOTE PT REMOVED HIMSELF FROM CPAP PRIOR TO RT ARRIVING IN ROOM. HR 61, RR 16, SPO2 94% ON RA, BS CLEAR. NO SIGNS OR SYMPTOMS OF RESPIRATORY DISTRESS NOTED AT THIS TIME.
[2020-06-03] MEDS: SUCRALFATE 1 GM/10 ML ORAL SUSP PO SCH ×4 (06:32→21:49)
[2020-06-03] MEDS: clonazePAM 0.5 MG TAB PO SCH ×2 (06:32→18:47)
--- NOTE | 2020-06-03 06:54 | NUR ---
Tap water enema done at this time. Patient had a solid soft bowel movement. Patient felt relief at this time
[2020-06-03] MEDS: METHADONE HCL 10 MG TAB PO SCH (08:00)
[2020-06-03] MEDS: ASPirin 81 mg TAB PO SCH (08:52)
[2020-06-03] MEDS: LACTULOSE 20Gm/30ML SOLN PO SCH ×2 (08:52→21:49)
[2020-06-03] MEDS: METOPROLOL TARTRATE 25 MG TAB PO SCH ×2 (08:53→21:50)
[2020-06-03] MEDS: DOCUSATE SOD 100 MG CAP PO SCH ×2 (08:53→21:50)
[2020-06-03] MEDS: PANTOPRAZOLE 40 MG TAB PO SCH ×2 (08:53→21:50)
[2020-06-03] MEDS: ENOXAPARIN SOD 40 MG/0.4 ML SYRINGE SC SCH (08:53)
[2020-06-03] MEDS: NITROGLYCERIN 0.2MG/HR TOPICAL PATCH TD SCH (08:54)
[2020-06-03 09:35] VITALS: BP 133/67
[2020-06-03 13:34] VITALS: BP 120/55
[2020-06-03 16:47] VITALS: BP 125/66
[2020-06-03] MEDS: SODIUM CHLORIDE 0.9% 1,000 ML IV SCH (18:47)
[2020-06-03] MEDS: MILK OF MAGNESIA 30ML SUSP PO PRN (18:47)
--- NOTE | 2020-06-03 18:49 | NUR ---
Patient refusing IV insertion at this time. Patient stating "I dont really need it, I'm going home tomorrow anyways, I'll just drink lots of water." Will attempt later/.
--- NOTE | 2020-06-03 18:49 | NUR ---
IV removal IV painful and rednned. IV DC'd with clean sterile technique, catheter fully intact. Pressure dressing applied to site. Patient tolerated well.
--- NOTE | 2020-06-03 19:05 | NUR ---
Opening Shift Note Assumed care of patient, awake and alert. No S/S of distress/SOB or pain. Safety measures in place, bed in lowest locked position, bed rails raised x2, call light within reach. Pt refusing IV at this time, states "he is going home anyway". Instructed on POC and to call for assist PRN, will continue to monitor for changes Q1hr and PRN. Addendum: 06/03/20 at 2212 by Eryn Conroy RN RN Pt educated on benefits of IV hydration, pt verbalized understanding, still refusing.
[2020-06-03] MEDS: ATORVASTATIN 20 MG TAB PO SCH (21:50)
[2020-06-03 22:00] VITALS: BP 119/64
[2020-06-04 05:00] VITALS: BP 126/73
[2020-06-04] MEDS: clonazePAM 0.5 MG TAB PO SCH (06:10)
[2020-06-04] MEDS: SUCRALFATE 1 GM/10 ML ORAL SUSP PO SCH ×2 (06:10→12:18)
[2020-06-04] MEDS: METHADONE HCL 10 MG TAB PO SCH (08:00)
[2020-06-04] MEDS: SODIUM CHLORIDE 0.9% 1,000 ML IV SCH (08:10)
[2020-06-04 09:00] VITALS: BP 113/67
[2020-06-04] MEDS: ASPirin 81 mg TAB PO SCH (10:07)
[2020-06-04] MEDS: PANTOPRAZOLE 40 MG TAB PO SCH (10:07)
[2020-06-04] MEDS: METOPROLOL TARTRATE 25 MG TAB PO SCH (10:07)
[2020-06-04] MEDS: LACTULOSE 20Gm/30ML SOLN PO SCH (10:07)
[2020-06-04] MEDS: DOCUSATE SOD 100 MG CAP PO SCH (10:07)
[2020-06-04] MEDS: ENOXAPARIN SOD 40 MG/0.4 ML SYRINGE SC SCH (10:08)
[2020-06-04] MEDS: NITROGLYCERIN 0.2MG/HR TOPICAL PATCH TD SCH (10:08)
[2020-06-04] MEDS ORDERED: PANT40TA2 PO (11:41)
[2020-06-04 12:37] VITALS: BP 113/67
[2020-06-04 13:00] VITALS: BP 117/68
--- NOTE | 2020-06-04 14:54 | NUR ---
Discharge instructions given as ordered. Encourage to follow up with PMD as instructed. All questions and concerns addressed. Patient verbalized understanding. Medication reconciliation form completed and copy given to patient. IV removed with catheter intact, pressure dressing applied, valdez catheter removed. Telemetry unit returned to ICU. Patient taken to vehicle via wheelchair with all personal belongings, accompanied by staff. No distress noted at time of departure.
== END 2020-06-04 15:00 | disposition home or self-care (01) | DRG 313 ==
LOC: EDBD 09:54 → ER 09:54 → TELE 09:55 → TELE-WESTW 16:50
PROVIDERS: ADMIT Internal Medicine; ATTEND Internal Medicine Nephrology
DX: R07.89 Other chest pain (principal); D35.02 Benign neoplasm of left adrenal gland; D35.01 Benign neoplasm of right adrenal gland; K59.09 Other constipation; F41.9 Anxiety disorder, unspecified; E78.5 Hyperlipidemia, unspecified; G89.4 Chronic pain syndrome; I10 Essential (primary) hypertension; E66.9 Obesity, unspecified; F17.210 Nicotine dependence, cigarettes, uncomplicated; G47.33 Obstructive sleep apnea (adult) (pediatric); K83.8 Other specified diseases of biliary tract; Z83.3 Family history of diabetes mellitus; Z85.828 Personal history of other malignant neoplasm of skin; Z68.31 Body mass index [BMI] 31.0-31.9, adult; R55 Syncope and collapse; E66.3 Overweight
CPT/HCPCS: 36415; 71045; 74176; 76705; 80053; 80061; 80307; 81001; 82088; 82384; 82533; 82550; 82570; 83735; 84484; 85025; 85379; 85652; 86141; 93005; 94660; G0378

== ENCOUNTER 2021-04-18 10:48 | Inpatient (IN) | payer OTHER, MEDICAID ==
[~2021-04-18] VITALS: Ht 193 cm; Wt 118.4 kg
[~2021-04-18 10:48] MED LIST changes: +CLON0.5T3 PO; -CLON1TAB10 PO; -ONDA-144 PO; +PANT40TA2 PO
[2021-04-18 11:20] LABS: Basophils # (auto) 0 10 ^3/uL (0-0.2); Basophils % (auto) 0.4 % (0.0-2.0); Eosinophils # (auto) 0.5 10 ^3/uL (0-0.8); Eosinophils % (auto) 6.7 % (0.0-7.0); Hematocrit 43.3 % (41.0-53.0); Hemoglobin 14.7 g/dL (13.5-17.5); Lymphocytes # (auto) 1.4 10 ^3/uL (0.4-5.4); Lymphocytes % (auto) 19.3 % (10.0-50.0); Mean Corpuscular Hemoglobin 30.4 pg (28.0-32.0); Mean Corpuscular Volume 89.3 fL (80.0-100.0); Monocytes # (auto) 0.5 10 ^3/uL (0-1.3); Monocytes % (auto) 6.3 % (0.0-12.0); Neutrophils # (auto) 4.9 10 ^3/uL (1.6-8.6); Neutrophils % (auto) 67.3 % (37.0-80.0); Nucleated Red Blood Cells % 0.1 %; Red Blood Cells 4.85 10^6/uL (4.5-5.90); Red Cell Distribution Width 13.8 % (11.8-14.3); White Blood Cell 7.2 10^3/uL (4.4-10.8)
[2021-04-18 11:41] LABS: Albumin 3.7 g/dL (3.4-5.0); Anion Gap 8 (5-15); Blood Urea Nitrogen 10 mg/dL (7-18); Calcium 9.2 mg/dL (8.5-10.1); Carbon Dioxide 27 mmol/L (21-32); Chloride 106 mmol/L (98-107); Glucose 93 mg/dL (74-106); Magnesium 2.2 mg/dL (1.6-2.6); Potassium 4.2 mmol/L (3.5-5.1); Sodium 141 mmol/L (136-145)
[2021-04-18 11:47] LABS: Alanine Aminotransferase 24 U/L (16-61); Alkaline Phosphatase 59 U/L (45-117); Aspartate Aminotransferase 12 U/L (15-37); BUN/Creatinine Ratio 11.1; Bilirubin, Total 0.4 mg/dL (0.2-1.0); GFR African American 110 mL/min; GFR Non-African American 91 mL/min; Total Protein 7.2 g/dL (6.4-8.2)
[2021-04-18] MEDS ORDERED: ASPirin 325 MG TAB PO ONE (18:15)
[2021-04-18] MEDS ORDERED: clonazePAM 0.5 MG TAB PO ONE (18:15)
[2021-04-18] MEDS ORDERED: MORPHINE SULFATE INJECTION 2 MG/ML SYRG IV PRN ×2 (19:45)
[2021-04-18] MEDS ORDERED: HYDROcodone-ACET 5/325MG TAB PO PRN (19:45)
[2021-04-18] MEDS ORDERED: ACETAMINOPHEN 500 MG TAB PO PRN (19:45)
[2021-04-18] MEDS ORDERED: ONDANSETRON HCL 4 MG/2 ML VIAL IV PRN (19:45)
[2021-04-18] MEDS ORDERED: NITROGLYCERIN 0.4 MG SL TAB SL PRN (19:45)
[2021-04-18 20:21] LABS: Cholesterol 171 mg/dL (< 200); HDL Cholesterol 43 mg/dL (40-59); LDL Cholesterol 111 mg/dL (< 100); Triglycerides 152 mg/dL (< 150)
[2021-04-18] MEDS ORDERED: PANTOPRAZOLE 40 MG TAB PO SCH (22:00)
[2021-04-19] MEDS ORDERED: clonazePAM 0.5 MG TAB PO ONE (01:00)
[2021-04-19 02:32] VITALS: BP 104/62
[2021-04-19] MEDS ORDERED: ASPI81CH59 PO (03:39)
[2021-04-19 05:00] VITALS: BP 138/73
[2021-04-19] MEDS: clonazePAM 0.5 MG TAB PO PRN ×2 (06:59→18:46)
[2021-04-19] MEDS: METHADONE HCL 10 MG TAB PO SCH (08:07)
[2021-04-19 09:00] VITALS: BP 130/80
[2021-04-19] MEDS ORDERED: METOPROLOL TARTRATE 25 MG TAB PO SCH (10:00)
[2021-04-19] MEDS ORDERED: ASPirin-EC 81 mg tab PO SCH (10:00)
[2021-04-19] MEDS ORDERED: NITROGLYCERIN 0.4MG/HR TOPICAL PATCH TD SCH (10:00)
[2021-04-19] MEDS: NIFEdipine ER 30 MG TAB PO SCH (10:06)
[2021-04-19 13:00] VITALS: BP 124/74
[2021-04-19 14:26] LABS: Alcohol, Urine < 3.0 mg/dL (0-10); Amphetamine Screen, Urine NEGATIVE (NEGATIVE); Barbiturate Scree,Urine NEGATIVE (NEGATIVE); Benzodiazephine Screen, Urine POSITIVE (NEGATIVE); Cannabinoid Screen, Urine NEGATIVE (NEGATIVE); Cocaine Screen, Urine NEGATIVE (NEGATIVE); Opiate Scree,Urine NEGATIVE (NEGATIVE); Phencyclidine Screen, Urine NEGATIVE (NEGATIVE)
[2021-04-19 14:46] LABS: Urine Bacteria NONE SEEN /hpf (None Seen); Urine Blood Negative /uL (Negative); Urine WBC <1 /hpf (0 - 3)
[2021-04-19 17:00] VITALS: BP 124/67
[2021-04-19] MEDS: ATORVASTATIN 20 MG TAB PO SCH (21:18)
[2021-04-19 22:00] VITALS: BP 112/67
[2021-04-20 05:00] VITALS: BP 133/70
[2021-04-20] MEDS: clonazePAM 0.5 MG TAB PO PRN ×2 (06:19→19:45)
[2021-04-20] MEDS ORDERED: ADENOSINE 101 MG in GIVE UN-DILUTED 0 ML IV STA (08:02)
[2021-04-20] MEDS: METHADONE HCL 10 MG TAB PO SCH (08:21)
[2021-04-20 09:00] VITALS: BP 127/78
[2021-04-20 09:32] VITALS: BP 130/79
[2021-04-20] MEDS: NIFEdipine ER 30 MG TAB PO SCH (10:00)
[2021-04-20] MEDS ORDERED: IODIXANOL 320MG/ML 100ML BTL IV ONE ×2 (12:55→13:36)
[2021-04-20] MEDS ORDERED: LIDOCAINE 2%HCL (LOCAL ANESTH.) INJ 20ML MDV ONE ×2 (12:55→13:36)
[2021-04-20] MEDS ORDERED: ANGIOMAX 250 MG VIAL IV ONE (13:34)
[2021-04-20] MEDS ORDERED: fentaNYL CITRATE 100 MCG/2 ML VL ONE (13:34)
[2021-04-20] MEDS ORDERED: SODIUM CHL 0.9% 50 ML ONE (13:35)
[2021-04-20] MEDS ORDERED: MIDAZOLAM HCL 2MG/2ML 2ml VIAL (1mg/ml) ONE (13:35)
[2021-04-20] MEDS ORDERED: VERAPAMIL 2.5MG/ML INJ 2ML VIAL IV ONE (13:54)
[2021-04-20] MEDS ORDERED: diphenhdrAMINE HCL 50 MG/1 ML VL ONE (13:59)
[2021-04-20] MEDS ORDERED: ASPirin 325 MG TAB ONE (14:14)
[2021-04-20] MEDS ORDERED: TICAGRELOR 90 MG TAB ONE (14:15)
[2021-04-20 17:00] VITALS: BP 134/73
[2021-04-20 22:00] VITALS: BP 129/73
[2021-04-20] MEDS: ATORVASTATIN 20 MG TAB PO SCH (22:17)
[2021-04-20] MEDS: TICAGRELOR 90 MG TAB PO SCH (22:17)
[2021-04-21 05:00] VITALS: BP 145/80
[2021-04-21] MEDS: clonazePAM 0.5 MG TAB PO PRN (06:30)
[2021-04-21] MEDS: METHADONE HCL 10 MG TAB PO SCH (08:04)
[2021-04-21 08:30] VITALS: BP 135/73
[2021-04-21 09:00] VITALS: BP 135/73
[2021-04-21] MEDS ORDERED: NIFE1TAB31 PO (09:47)
[2021-04-21] MEDS ORDERED: ATOR40TA52 PO (09:47)
[2021-04-21] MEDS ORDERED: ASPI81CH59 PO (09:47)
[2021-04-21] MEDS ORDERED: TICA90TA PO (09:47)
[2021-04-21] MEDS ORDERED: ASPirin 81 mg TAB PO SCH (10:00)
[2021-04-21] MEDS: TICAGRELOR 90 MG TAB PO SCH (10:12)
[2021-04-21] MEDS: NIFEdipine ER 30 MG TAB PO SCH (10:12)
== END 2021-04-21 12:48 | disposition home or self-care (01) | DRG 247 ==
LOC: ER 10:48 → TELE 19:40 → TELE-CENTR 04-19 02:13
PROVIDERS: ADMIT Internal Medicine; ATTEND Internal Medicine
PROC: 027034Z Dilation of Coronary Artery, One Artery with Drug-eluting Intraluminal Device, Percutaneous Approach (ICD-10-PCS; principal; 2021-04-20)
PROC: B211YZZ Fluoroscopy of Multiple Coronary Arteries using Other Contrast (ICD-10-PCS; 2021-04-20)
DX: I25.110 Atherosclerotic heart disease of native coronary artery with unstable angina pectoris (principal); I24.9 Acute ischemic heart disease, unspecified; E66.9 Obesity, unspecified; I50.9 Heart failure, unspecified; J44.9 Chronic obstructive pulmonary disease, unspecified; F41.9 Anxiety disorder, unspecified; G47.30 Sleep apnea, unspecified; F17.210 Nicotine dependence, cigarettes, uncomplicated; I11.0 Hypertensive heart disease with heart failure; R00.1 Bradycardia, unspecified; Z20.822 Contact with and (suspected) exposure to COVID-19; Z83.3 Family history of diabetes mellitus; Z68.31 Body mass index [BMI] 31.0-31.9, adult; Z82.49 Family history of ischemic heart disease and other diseases of the circulatory system; Z85.828 Personal history of other malignant neoplasm of skin; Z71.6 Tobacco abuse counseling
CPT/HCPCS: 36415; 71046; 78452; 80053; 80061; 80307; 81001; 83735; 83880; 84443; 84484; 85025; 87426; 92928; 93005; 93017; 93306; 93454; 99152; 99153; C1874; C1887; G0378; J0153; J2250; J2405; Q9967

== ENCOUNTER 2021-04-29 08:16 | Emergency (ER) | payer OTHER, MEDICAID ==
[~2021-04-29] VITALS: Ht 177.8 cm; Wt 117.9 kg
[~2021-04-29 08:16] MED LIST changes: +ASPI81CH59 PO; +ATOR40TA52 PO; -MET25T PO; +NIFE1TAB31 PO; +TICA90TA PO
[2021-04-29] MEDS ORDERED: NITROGLYCERIN 0.4 MG SL TAB SL ONE (08:30)
[2021-04-29] MEDS ORDERED: clonazePAM 0.5 MG TAB PO ONE (09:30)
[2021-04-29 09:43] LABS: Basophils # (auto) 0 10 ^3/uL (0-0.2); Basophils % (auto) 0.5 % (0.0-2.0); Eosinophils # (auto) 0.2 10 ^3/uL (0-0.8); Eosinophils % (auto) 2.3 % (0.0-7.0); Hematocrit 41.4 % (41.0-53.0); Hemoglobin 14.2 g/dL (13.5-17.5); Lymphocytes # (auto) 1.4 10 ^3/uL (0.4-5.4); Mean Corpuscular Hemoglobin 30.1 pg (28.0-32.0); Mean Corpuscular Hgb Conc. 34.4 g/dL (32.0-36.0); Mean Corpuscular Volume 87.5 fL (80.0-100.0); Monocytes # (auto) 0.6 10 ^3/uL (0-1.3); Monocytes % (auto) 6.6 % (0.0-12.0); Neutrophils # (auto) 6.4 10 ^3/uL (1.6-8.6); Neutrophils % (auto) 74.6 % (37.0-80.0); Red Blood Cells 4.73 10^6/uL (4.5-5.90); Red Cell Distribution Width 13.6 % (11.8-14.3); White Blood Cell 8.6 10^3/uL (4.4-10.8)
[2021-04-29 09:57] LABS: INR 1.08 (0.9-1.15); Partial Thromboplastin Time 27.7 sec (23.6-33.0)
[2021-04-29 10:00] VITALS: BP 141/72
[2021-04-29 10:04] LABS: Albumin 3.7 g/dL (3.4-5.0); Anion Gap 6 (5-15); Blood Urea Nitrogen 9 mg/dL (7-18); Calcium 8.7 mg/dL (8.5-10.1); Carbon Dioxide 25 mmol/L (21-32); Chloride 107 mmol/L (98-107); Glucose 80 mg/dL (74-106); Potassium 3.9 mmol/L (3.5-5.1); Sodium 138 mmol/L (136-145)
[2021-04-29 10:11] LABS: Alanine Aminotransferase 29 U/L (16-61); Alkaline Phosphatase 62 U/L (45-117); Aspartate Aminotransferase 15 U/L (15-37); BUN/Creatinine Ratio 10.2; Bilirubin, Total 0.6 mg/dL (0.2-1.0); GFR African American 113 mL/min; GFR Non-African American 94 mL/min; Total Protein 7.2 g/dL (6.4-8.2)
[2021-04-29 11:04] LABS: Urine Bacteria NONE SEEN /hpf (None Seen); Urine Blood Negative /uL (Negative); Urine Specific Gravity 1.004 (1.001-1.035); Urine WBC 1 /hpf (0 - 3)
== END 2021-04-29 11:18 | disposition home or self-care (01) ==
LOC: EDBD 08:16 → ER 08:16
DX: R07.89 Other chest pain (principal); I11.0 Hypertensive heart disease with heart failure; I50.9 Heart failure, unspecified; F17.210 Nicotine dependence, cigarettes, uncomplicated; Z86.73 Personal history of transient ischemic attack (TIA), and cerebral infarction without residual deficits; Z79.899 Other long term (current) drug therapy
CPT/HCPCS: 36415; 71045; 80053; 81001; 84484; 85025; 85610; 85730; 93005

== ENCOUNTER 2021-05-06 14:35 | Inpatient (IN) | payer OTHER, MEDICAID ==
[~2021-05-06] VITALS: Ht 193 cm; Wt 118.3 kg
[2021-05-06] MEDS ORDERED: SODIUM CHLORIDE 0.9% 1,000 ML IV ONE (15:15)
[2021-05-06] MEDS ORDERED: MORPHINE SULFATE 4 MG/ML SYR/VIAL IV ONE ×2 (15:15→20:30)
[2021-05-06 15:20] LABS: Basophils # (auto) 0.1 10 ^3/uL (0-0.2); Basophils % (auto) 0.7 % (0.0-2.0); Eosinophils # (auto) 0.3 10 ^3/uL (0-0.8); Eosinophils % (auto) 3.8 % (0.0-7.0); Hematocrit 43.1 % (41.0-53.0); Hemoglobin 14.4 g/dL (13.5-17.5); Lymphocytes # (auto) 1.7 10 ^3/uL (0.4-5.4); Lymphocytes % (auto) 19.2 % (10.0-50.0); Mean Corpuscular Hemoglobin 29.6 pg (28.0-32.0); Mean Corpuscular Hgb Conc. 33.4 g/dL (32.0-36.0); Mean Corpuscular Volume 88.4 fL (80.0-100.0); Monocytes # (auto) 0.6 10 ^3/uL (0-1.3); Monocytes % (auto) 6.7 % (0.0-12.0); Neutrophils # (auto) 6.2 10 ^3/uL (1.6-8.6); Neutrophils % (auto) 69.6 % (37.0-80.0); Red Blood Cells 4.88 10^6/uL (4.5-5.90); Red Cell Distribution Width 13.7 % (11.8-14.3); White Blood Cell 8.9 10^3/uL (4.4-10.8)
[2021-05-06 15:36] LABS: INR 1.05 (0.9-1.15)
[2021-05-06 15:43] LABS: Albumin 3.7 g/dL (3.4-5.0); Anion Gap 6 (5-15); Blood Urea Nitrogen 16 mg/dL (7-18); Calcium 8.9 mg/dL (8.5-10.1); Carbon Dioxide 27 mmol/L (21-32); Chloride 108 mmol/L (98-107); Glucose 80 mg/dL (74-106); Potassium 3.9 mmol/L (3.5-5.1); Sodium 141 mmol/L (136-145)
[2021-05-06 15:49] LABS: Alanine Aminotransferase 33 U/L (16-61); Alkaline Phosphatase 65 U/L (45-117); Aspartate Aminotransferase 18 U/L (15-37); BUN/Creatinine Ratio 18.6; Bilirubin, Total 0.3 mg/dL (0.2-1.0); GFR African American 116 mL/min; GFR Non-African American 96 mL/min; Total Protein 7.5 g/dL (6.4-8.2)
[2021-05-06 16:51] LABS: Urine Bacteria NONE SEEN /hpf (None Seen); Urine Blood 1+ /uL (Negative); Urine WBC <1 /hpf (0 - 3)
[2021-05-06] MEDS ORDERED: IOHEXOL 300 MG/ML 100ML BOTTLE IJ ONE (18:32)
[2021-05-06] MEDS ORDERED: LORazepam 0.5 MG TAB PO ONE (20:30)
[2021-05-06] MEDS ORDERED: MORPHINE SULFATE INJECTION 2 MG/ML SYRG IV PRN (20:45)
[2021-05-06] MEDS ORDERED: hydrALAZINE HCL 20 MG/ML VL IV PRN (20:45)
[2021-05-06] MEDS ORDERED: DOCUSATE SOD 100 MG CAP PO PRN (20:45)
[2021-05-06] MEDS ORDERED: NITROGLYCERIN 0.4 MG SL TAB SL PRN (20:45)
[2021-05-06 22:28] VITALS: BP 151/89
[2021-05-06] MEDS: PANTOPRAZOLE 40 MG TAB PO SCH (22:39)
[2021-05-06] MEDS: ATORVASTATIN 20 MG TAB PO SCH (22:40)
[2021-05-06] MEDS: TICAGRELOR 90 MG TAB PO SCH (22:40)
[2021-05-07] MEDS ORDERED: ATO40T PO (04:40)
[2021-05-07 05:00] VITALS: BP 120/69
[2021-05-07 05:59] LABS: Basophils # (auto) 0 10 ^3/uL (0-0.2); Basophils % (auto) 0.6 % (0.0-2.0); Eosinophils # (auto) 0.4 10 ^3/uL (0-0.8); Eosinophils % (auto) 5.8 % (0.0-7.0); Hematocrit 38.4 % (41.0-53.0); Lymphocytes # (auto) 1.6 10 ^3/uL (0.4-5.4); Lymphocytes % (auto) 21.4 % (10.0-50.0); Mean Corpuscular Hemoglobin 29.8 pg (28.0-32.0); Mean Corpuscular Hgb Conc. 33.8 g/dL (32.0-36.0); Mean Corpuscular Volume 87.9 fL (80.0-100.0); Monocytes # (auto) 0.6 10 ^3/uL (0-1.3); Neutrophils # (auto) 4.7 10 ^3/uL (1.6-8.6); Neutrophils % (auto) 64.2 % (37.0-80.0); Red Blood Cells 4.36 10^6/uL (4.5-5.90); Red Cell Distribution Width 13.8 % (11.8-14.3); White Blood Cell 7.3 10^3/uL (4.4-10.8)
[2021-05-07 06:21] LABS: BUN/Creatinine Ratio 17.1; Calcium 8.6 mg/dL (8.5-10.1); Potassium 4.5 mmol/L (3.5-5.1)
[2021-05-07 09:00] VITALS: BP 113/59
[2021-05-07] MEDS: ASPirin 81 mg TAB PO SCH (09:19)
[2021-05-07] MEDS: TICAGRELOR 90 MG TAB PO SCH ×2 (09:19→22:29)
[2021-05-07] MEDS: PANTOPRAZOLE 40 MG TAB PO SCH ×2 (09:19→22:30)
[2021-05-07 13:00] VITALS: BP 114/69
[2021-05-07 13:05] LABS: Urine WBC None Seen /hpf (0 - 3)
[2021-05-07 13:34] LABS: Urine Bacteria NONE SEEN /hpf (None Seen); Urine Blood TRACE /uL (Negative); Urine Specific Gravity 1.009 (1.001-1.035)
[2021-05-07] MEDS: HYDROcodone-ACET 5/325MG TAB PO PRN (16:56)
[2021-05-07 17:00] VITALS: BP 113/70
[2021-05-07] MEDS ORDERED: clonazePAM 0.5 MG TAB PO SCH (18:00)
[2021-05-07] MEDS ORDERED: MORPHINE SULFATE INJECTION 2 MG/ML SYRG IV PRN (20:45)
[2021-05-07 22:00] VITALS: BP 123/70
[2021-05-07] MEDS: RANOLAZINE ER 500 MG TAB PO SCH (22:30)
[2021-05-07] MEDS: ATORVASTATIN 20 MG TAB PO SCH (22:30)
[2021-05-08] MEDS: HYDROcodone-ACET 5/325MG TAB PO PRN ×3 (01:30→15:28)
[2021-05-08] MEDS ORDERED: MORPHINE SULFATE INJECTION 2 MG/ML SYRG IV PRN (01:45)
[2021-05-08 05:18] VITALS: BP 119/68
[2021-05-08] MEDS ORDERED: clonazePAM 0.5 MG TAB PO SCH (06:00)
[2021-05-08] MEDS ORDERED: METHADONE HCL 10 MG TAB PO SCH (06:00)
[2021-05-08 08:52] VITALS: BP 116/60
[2021-05-08] MEDS: PANTOPRAZOLE 40 MG TAB PO SCH (08:54)
[2021-05-08] MEDS: ASPirin 81 mg TAB PO SCH (08:54)
[2021-05-08] MEDS: RANOLAZINE ER 500 MG TAB PO SCH (08:54)
[2021-05-08] MEDS: TICAGRELOR 90 MG TAB PO SCH (08:54)
[2021-05-08] MEDS ORDERED: NIFEdipine ER 30 MG TAB PO SCH (10:00)
[2021-05-08] MEDS ORDERED: RANO500T PO (11:14)
[2021-05-08] MEDS ORDERED: SUCR1SUS10 PO (11:14)
[2021-05-08 13:00] VITALS: BP 118/65
[2021-05-08 17:00] VITALS: BP 124/61
== END 2021-05-08 18:10 | disposition home or self-care (01) | DRG 313 ==
LOC: ER 14:35 → TELE 20:43 → TELE-WESTW 22:28 → OBSVTOIN 05-07 16:46
PROVIDERS: ADMIT Hospitalist; ATTEND Hospitalist
DX: R07.89 Other chest pain (principal); E78.5 Hyperlipidemia, unspecified; F17.210 Nicotine dependence, cigarettes, uncomplicated; F41.9 Anxiety disorder, unspecified; I11.0 Hypertensive heart disease with heart failure; I25.10 Atherosclerotic heart disease of native coronary artery without angina pectoris; I50.9 Heart failure, unspecified; F11.90 Opioid use, unspecified, uncomplicated; G89.29 Other chronic pain; R31.9 Hematuria, unspecified; R42 Dizziness and giddiness; Z20.822 Contact with and (suspected) exposure to COVID-19; Z82.49 Family history of ischemic heart disease and other diseases of the circulatory system; Z83.3 Family history of diabetes mellitus; Z95.5 Presence of coronary angioplasty implant and graft
CPT/HCPCS: 36415; 71045; 74177; 80048; 80053; 81001; 83605; 83690; 84484; 85025; 85610; 85730; 86850; 86900; 86901; 87081; 87426; 93005; 96361; 96374; 96375; 96376; G0378

== ENCOUNTER 2021-09-15 07:36 | Emergency (ER) | payer OTHER, MEDICAID ==
[~2021-09-15] VITALS: Ht 193 cm; Wt 118.8 kg
[~2021-09-15 07:36] MED LIST changes: +ATO40T PO; +RANO500T PO; +SUCR1SUS10 PO
[2021-09-15 09:40] LABS: Basophils # (auto) 0.1 10 ^3/uL (0-0.2); Eosinophils # (auto) 0.3 10 ^3/uL (0-0.8); Eosinophils % (auto) 2.8 % (0.0-7.0); Hematocrit 40.9 % (41.0-53.0); Hemoglobin 13.7 g/dL (13.5-17.5); Lymphocytes # (auto) 1.4 10 ^3/uL (0.4-5.4); Lymphocytes % (auto) 14.8 % (10.0-50.0); Mean Corpuscular Hemoglobin 29.2 pg (28.0-32.0); Mean Corpuscular Hgb Conc. 33.6 g/dL (32.0-36.0); Mean Corpuscular Volume 86.7 fL (80.0-100.0); Monocytes # (auto) 0.7 10 ^3/uL (0-1.3); Neutrophils # (auto) 7.1 10 ^3/uL (1.6-8.6); Neutrophils % (auto) 74.4 % (37.0-80.0); Nucleated Red Blood Cells % 0.1 %; Red Blood Cells 4.71 10^6/uL (4.5-5.90); White Blood Cell 9.6 10^3/uL (4.4-10.8)
[2021-09-15 10:02] LABS: Albumin 3.7 g/dL (3.4-5.0); Calcium 8.8 mg/dL (8.5-10.1); Potassium 3.9 mmol/L (3.5-5.1)
[2021-09-15 10:10] LABS: BUN/Creatinine Ratio 12.4; Bilirubin, Total 0.6 mg/dL (0.2-1.0); Total Protein 7.2 g/dL (6.4-8.2)
[2021-09-15] MEDS ORDERED: HYDROcodone-ACET 5/325MG TAB PO ONE (10:30)
[2021-09-15 10:44] VITALS: BP 128/63
== END 2021-09-15 10:49 | disposition home or self-care (01) ==
LOC: ER 07:36
DX: R07.89 Other chest pain (principal); F41.9 Anxiety disorder, unspecified; M79.601 Pain in right arm; M79.605 Pain in left leg; I11.0 Hypertensive heart disease with heart failure; I50.9 Heart failure, unspecified; I25.10 Atherosclerotic heart disease of native coronary artery without angina pectoris; E78.5 Hyperlipidemia, unspecified; F17.210 Nicotine dependence, cigarettes, uncomplicated; Z79.82 Long term (current) use of aspirin; Z79.899 Other long term (current) drug therapy; Z88.2 Allergy status to sulfonamides; W01.0XXA Fall on same level from slipping, tripping and stumbling without subsequent striking against object, initial encounter; Y93.89 Activity, other specified; Y92.89 Other specified places as the place of occurrence of the external cause; Y99.8 Other external cause status
CPT/HCPCS: 36415; 71111; 72170; 73060; 80053; 84484; 85025

== ENCOUNTER 2022-03-25 07:29 | Inpatient (IN) | payer OTHER, MEDICAID ==
[~2022-03-25] VITALS: Ht 193 cm; Wt 121.8 kg
[2022-03-25 08:19] LABS: Basophils # (auto) 0 10 ^3/uL (0-0.2); Basophils % (auto) 0.3 % (0.0-2.0); Eosinophils # (auto) 0.2 10 ^3/uL (0-0.8); Eosinophils % (auto) 2.1 % (0.0-7.0); Hematocrit 43.7 % (41.0-53.0); Hemoglobin 14.4 g/dL (13.5-17.5); Lymphocytes # (auto) 1.3 10 ^3/uL (0.4-5.4); Lymphocytes % (auto) 17.1 % (10.0-50.0); Mean Corpuscular Hemoglobin 28.7 pg (28.0-32.0); Mean Corpuscular Hgb Conc. 32.9 g/dL (32.0-36.0); Mean Corpuscular Volume 87.5 fL (80.0-100.0); Monocytes # (auto) 0.5 10 ^3/uL (0-1.3); Monocytes % (auto) 6.4 % (0.0-12.0); Neutrophils # (auto) 5.7 10 ^3/uL (1.6-8.6); Neutrophils % (auto) 74.1 % (37.0-80.0); Red Cell Distribution Width 13.8 % (11.8-14.3); White Blood Cell 7.7 10^3/uL (4.4-10.8)
[2022-03-25 08:33] LABS: INR 1.05 (0.9-1.15); Partial Thromboplastin Time 28.9 sec (24.6-33.4)
[2022-03-25 08:34] LABS: Albumin 3.9 g/dL (3.4-5.0); Calcium 8.9 mg/dL (8.5-10.1); Magnesium 2.3 mg/dL (1.6-2.6); Potassium 4.1 mmol/L (3.5-5.1)
[2022-03-25 08:48] LABS: BUN/Creatinine Ratio 12.2
[2022-03-25 08:49] LABS: Bilirubin, Total 0.5 mg/dL (0.2-1.0)
[2022-03-25] MEDS ORDERED: LOSARTAN POTASSIUM 25 MG TAB PO SCH (10:30)
[2022-03-25 11:03] LABS: Urine Bacteria NONE SEEN /hpf (None Seen); Urine Blood Negative /uL (Negative); Urine Specific Gravity 1.014 (1.001-1.035); Urine WBC <1 /hpf (0 - 3)
[2022-03-25] MEDS ORDERED: MORPHINE SULFATE INJ 2 MG/ml SYRG IV PRN (11:15)
[2022-03-25] MEDS ORDERED: NITROGLYCERIN 0.4 MG SL TAB SL PRN (11:15)
[2022-03-25] MEDS ORDERED: ACETAMINOPHEN 500 MG TAB PO ONE (11:45)
[2022-03-25 12:00] LABS: Cholesterol 89 mg/dL (< 200); HDL Cholesterol 46 mg/dL (40-59); LDL Cholesterol 44 mg/dL (< 100); Triglycerides 103 mg/dL (< 150)
[2022-03-25] MEDS: MORPHINE SULFATE INJ 2 MG/ml SYRG IV PRN ×2 (14:19→18:51)
[2022-03-25 22:00] VITALS: BP 141/71
[2022-03-25] MEDS: TICAGRELOR 90 MG TAB PO SCH (22:17)
[2022-03-25] MEDS: clonazePAM 0.5 MG TAB PO SCH (22:18)
[2022-03-25] MEDS: ATORVASTATIN 20 MG TAB PO SCH (22:19)
[2022-03-26] VITALS: BP 137/67
[2022-03-26 05:00] VITALS: BP 126/70
[2022-03-26] MEDS ORDERED: ONDANSETRON HCL 4 MG/2 ML VIAL IV PRN (06:00)
[2022-03-26] MEDS: METHADONE HCL 10 MG TAB PO SCH (06:04)
[2022-03-26 06:34] LABS: Basophils # (auto) 0 10 ^3/uL (0-0.2); Basophils % (auto) 0.4 % (0.0-2.0); Eosinophils # (auto) 0.3 10 ^3/uL (0-0.8); Eosinophils % (auto) 3.8 % (0.0-7.0); Hematocrit 42.5 % (41.0-53.0); Hemoglobin 14.2 g/dL (13.5-17.5); Lymphocytes # (auto) 1.4 10 ^3/uL (0.4-5.4); Mean Corpuscular Hgb Conc. 33.4 g/dL (32.0-36.0); Mean Corpuscular Volume 86.8 fL (80.0-100.0); Monocytes # (auto) 0.6 10 ^3/uL (0-1.3); Monocytes % (auto) 7.1 % (0.0-12.0); Neutrophils # (auto) 5.5 10 ^3/uL (1.6-8.6); Neutrophils % (auto) 70.7 % (37.0-80.0); Nucleated Red Blood Cells % 0.1 %; Red Blood Cells 4.89 10^6/uL (4.5-5.90); Red Cell Distribution Width 14.3 % (11.8-14.3); White Blood Cell 7.9 10^3/uL (4.4-10.8)
[2022-03-26 06:50] LABS: Albumin 3.6 g/dL (3.4-5.0); Calcium 8.9 mg/dL (8.5-10.1); Potassium 4.2 mmol/L (3.5-5.1)
[2022-03-26 06:54] LABS: BUN/Creatinine Ratio 16.9; Bilirubin, Total 0.7 mg/dL (0.2-1.0); Total Protein 7.4 g/dL (6.4-8.2)
[2022-03-26] MEDS ORDERED: ADENOSINE 102 MG in GIVE UN-DILUTED 0 ML IV ONE (08:30)
[2022-03-26 09:00] VITALS: BP 123/49
[2022-03-26] MEDS: ASPirin 81 mg TAB PO SCH (09:08)
[2022-03-26] MEDS ORDERED: ATORVASTATIN 20 MG TAB PO SCH (10:00)
[2022-03-26] MEDS: TICAGRELOR 90 MG TAB PO SCH ×2 (10:19→22:00)
[2022-03-26] MEDS: clonazePAM 0.5 MG TAB PO SCH ×2 (10:19→22:00)
[2022-03-26] MEDS ORDERED: ACETAMINOPHEN 500 MG TAB PO PRN (11:45)
[2022-03-26] MEDS ORDERED: ONDANSETRON ODT 4 MG TAB PO ONE (11:45)
[2022-03-26] MEDS ORDERED: ACETAMINOPHEN 325 MG TAB PO ONE (11:45)
[2022-03-26 13:00] VITALS: BP 114/61
[2022-03-26 17:00] VITALS: BP 136/64
[2022-03-26] MEDS ORDERED: DOCUSATE SOD 100 MG CAP PO PRN (17:15)
[2022-03-26] MEDS ORDERED: DOCUSATE SOD 100 MG CAP PO ONE (17:15)
[2022-03-26] MEDS: ONDANSETRON ODT 4 MG TAB PO PRN (18:14)
[2022-03-26] MEDS ORDERED: ACETAMINOPHEN 325 MG TAB PO PRN (18:15)
[2022-03-26 22:00] VITALS: BP 116/61
[2022-03-26] MEDS: ATORVASTATIN 20 MG TAB PO SCH (22:00)
[2022-03-27 05:00] VITALS: BP 114/63
[2022-03-27] MEDS: METHADONE HCL 10 MG TAB PO SCH (06:46)
[2022-03-27] MEDS: ONDANSETRON ODT 4 MG TAB PO PRN (06:47)
[2022-03-27] MEDS: clonazePAM 0.5 MG TAB PO SCH (09:46)
[2022-03-27] MEDS: TICAGRELOR 90 MG TAB PO SCH (09:46)
[2022-03-27] MEDS: ASPirin 81 mg TAB PO SCH (09:47)
[2022-03-27] MEDS ORDERED: GABAPENTIN 300 MG CAP PO SCH (10:00)
[2022-03-27] MEDS ORDERED: LACT10SO3 PO (13:10)
[2022-03-27 13:36] VITALS: BP 108/65
== END 2022-03-27 16:45 | disposition home or self-care (01) | DRG 313 ==
LOC: ER 07:29 → TELE 11:04 → TELE-EAST 19:25
PROVIDERS: ADMIT Registered Nurse; ATTEND Internal Medicine
DX: R07.9 Chest pain, unspecified (principal); I50.32 Chronic diastolic (congestive) heart failure; I11.0 Hypertensive heart disease with heart failure; E78.5 Hyperlipidemia, unspecified; R73.9 Hyperglycemia, unspecified; Z20.822 Contact with and (suspected) exposure to COVID-19; G47.30 Sleep apnea, unspecified; E66.01 Morbid (severe) obesity due to excess calories; I25.10 Atherosclerotic heart disease of native coronary artery without angina pectoris; R73.03 Prediabetes; Z82.49 Family history of ischemic heart disease and other diseases of the circulatory system; Z68.32 Body mass index [BMI] 32.0-32.9, adult; Z83.3 Family history of diabetes mellitus; Z85.828 Personal history of other malignant neoplasm of skin; Z87.891 Personal history of nicotine dependence; Z98.61 Coronary angioplasty status; Z88.8 Allergy status to other drugs, medicaments and biological substances
CPT/HCPCS: 36415; 70450; 71045; 80053; 80061; 81001; 83036; 83735; 83880; 84484; 85025; 85610; 85730; 93005; 93017; 93306; 94660; 96374; 99291; G0378; J0153; Q0162